=== PATIENT | female | born 1990 | race Caucasian/White ===

== ENCOUNTER 2020-09-20 14:03 | Emergency (ER) | payer SELFPAY ==
--- NOTE | 2020-09-20 14:15 | ED.URI ---
HPI - URI/Sore Throat General Chief Complaint: Upper Respiratory Infection Stated Complaint: covid syptoms Time Seen by Provider: 09/20/20 14:15 Source: patient and RN notes reviewed Mode of arrival: ambulatory Limitations: no limitations History of Present Illness HPI Narrative: 30-year-old female presents to [facility] with complaints of runny nose, sinus congestion, productive cough. Patient states that her son had the same symptoms Tuesday and Tuesday, had it Tuesday, her started on , 2 days ago. Denies fevers. Try using Flonase one time and states it did make it a little bit better. States even though she has her tonsils removed she has a very bad sore throat and is concerned about strep throat. Related Data Home Medications Medication Instructions Recorded Confirmed Mucinex 09/20/20 alprazolam 09/20/20 zolpidem 09/20/20 Allergies Allergy/AdvReac Type Severity Reaction Status Date / Time No Known Allergies Allergy Unverified 02/17/18 14:36 Review of Systems Review of Systems: Narrative: CONSTITUTIONAL: Denies fever, chills, or sweats. EYES: Denies visual changes, redness, or discharge. ENT: Reports rhinorrhea, congestion, sore throat, or otalgia. CARDIOVASCULAR: Denies chest pain, palpitations, or edema. RESPIRATORY: Productive cough. Denies dyspnea. GASTROINTESTINAL: Denies abdominal pain, vomiting, or diarrhea. Intermittent nausea GENITOURINARY: Denies dysuria or hematuria. SKIN: Denies rash or itching. MUSCULOSKELETAL: Denies back pain, joint pain, or myalgia. NEUROLOGIC: Denies headache, numbness, or weakness. PSYCHIATRIC: Denies anxiety or depression. All other systems reviewed are negative, except as documented in HPI. PMFSH Comments At the time of my signature, I reviewed and agree with the nursing past medical, surgical, social, and family history. There is no relevant family history pertinent to the patient complaint. Exam Narrative: Exam Narrative: GENERAL: This is a well-nourished, well-developed patient, in no apparent distress. HEAD: normocephalic, atraumatic. EYES: PERRL. Sclera clear/white. Vision is grossly intact. EARS: External ears normal, auditory canals clear and without drainage, TMs normal without perforation. Hearing grossly intact. NOSE: External nose normal withthick clear nasal discharge, nares with redness bilaterally. Positive rhinorrhea and postnasal drip THROAT: Mucous membranes moist, posterior pharynx drainage, postnasal drip NECK: Neck supple, non-tender without lymphadenopathy, masses or thyromegaly. CARDIOVASCULAR: Regular rate and rhythm without murmurs, gallops, or rubs. RESPIRATORY: Clear to auscultation. Breath sounds equal bilaterally. No wheezes, rales, or rhonchi. Strong cough noted every time she sniffles GASTROINTESTINAL: Abdomen soft, non-tender, nondistended. Bowel sounds are active. No hepato-splenomegaly, or palpable masses. No guarding. SKIN: warm, intact with no suspicious lesions or rash, good texture and turgor. NEURO: awake, alert, and oriented to person, place and time. There were no obvious focal neurologic abnormalities. EXTREMITIES: No clubbing, cyanosis, or edema. No joint tenderness, effusion, or edema noted. BACK: Nontender without deformity or crepitance. No flank tenderness. Course Vital Signs Vital signs: Vital Signs Temperature 98.8 F 09/20/20 14:23 Pulse Rate 108 H 09/20/20 14:23 Respiratory Rate 16 09/20/20 14:23 Blood Pressure 124/67 09/20/20 14:23 Pulse Oximetry 98 09/20/20 14:23 Temperature 98.8 F 09/20/20 14:23 Pulse Rate 108 H 09/20/20 14:23 Respiratory Rate 16 09/20/20 14:23 Blood Pressure 124/67 09/20/20 14:23 Pulse Oximetry 98 09/20/20 14:23 Reviewed MDM - URI/Sore Throat Differential Diagnosis Differential diagnosis: Likely upper respiratory infection, otitis media, sinusitis, viral infection, bronchitis, influenza, pharyngitis and other (Covid) Lab Data La
[2020-09-20 14:23] VITALS: BP 124/67; PULSE 108; RESP 16; TEMP 37.1; O2SAT 98
[2020-09-22 23:00] LABS: SARS-CoV-2 RNA PCR Negative
== END 2020-09-20 15:10 | disposition home or self-care (01) ==
PROVIDERS: Emergency Provider Nurse Practitioner
DX: B34.9 Viral infection, unspecified (principal); J01.40 Acute pansinusitis, unspecified; R09.82 Postnasal drip; Z20.822 Contact with and (suspected) exposure to COVID-19
CPT/HCPCS: 87081; 87804; 87880; 99213; C9803; G0463; U0003; U0005

== ENCOUNTER 2021-09-26 12:21 | Outpatient (CLI) | payer OTHER, SELFPAY ==
[2021-09-26 12:45] VITALS: BP 149/83; PULSE 99
[2021-09-26 13:00] VITALS: BP 133/76; PULSE 103
[2021-09-26 13:35] LABS: Hematocrit 33.2 % (37.0-47.0); Hemoglobin 10.9 g/dL (12.0-15.0); Mean Corpuscular HGB Conc 32.8 g/dl (32-36); Mean Corpuscular Hemoglobin 27.9 pg (26-34); Mean Corpuscular Volume 85.1 fl (80-100); Mean Platelet Volume 10.4 fl (7.4-10.4); Platelet Count Result 209 k/mm3 (150-375); Red Cell Distribution Width 13.7 % (11.5-14.5); White Blood Count 14.4 K/mm3 (4.5-10.0)
[2021-09-28 07:14] LABS: Rapid Plasma Reagin Non-Reactive (NonReactive)
== END 2021-09-26 13:20 | disposition home or self-care (01) ==
LOC: ANHOBOP 12:30 → ANHLDR 12:30
PROVIDERS: Visit Provider Obstetrics & Gynecology
DX: O13.9 Gestational [pregnancy-induced] hypertension without significant proteinuria, unspecified trimester (principal); Z3A.00 Weeks of gestation of pregnancy not specified
CPT/HCPCS: 36415; 85027; 86592; 86850; 86900; 86901; 99199

== ENCOUNTER 2021-09-26 12:21 | Outpatient (RCR) | payer OTHER, SELFPAY ==
[2021-09-26 13:08] VITALS: BP 133/76; PULSE 103
== END 2021-10-13 09:35 | disposition home or self-care (01) ==
LOC: ANHOBOP 12:21
PROVIDERS: Visit Provider Obstetrics & Gynecology
DX: O26.619 Liver and biliary tract disorders in pregnancy, unspecified trimester (principal); K83.1 Obstruction of bile duct; Z3A.00 Weeks of gestation of pregnancy not specified
CPT/HCPCS: 59025

== ENCOUNTER 2021-09-28 04:57 | Inpatient (IN) | payer OTHER, SELFPAY ==
--- NOTE | 2021-09-26 13:13 | PC.NURSE ---
Verified with or schedule and patient--c/s with tubal ligation on 09/28/21 at 0730
[2021-09-28] VITALS (60 sets, daily range): BP systolic 90–135; BP diastolic 35–86; PULSE 55–130; RESP 12–18; TEMP 36.1–36.8; O2SAT 98–100; BMI 46.9
--- OUTSIDE RECORDS SUMMARY | 2021-09-28 05:01 | XMS_ITS | Encounter Summary ---
:1990 Author Reason for Visit None recorded. Assessment and Plan 1. Maternal obesity complicating , childbirth and the puerperium, antepartum ? US, obstetric, biophysical profile + non-stress test Discussion Note: None recorded.Patient educational handouts: No information available. Plan of Care Reminders Provider Appointments Ob Routine Ventura Melendez 10/06/2021 MD Clarence 11:45AM Lab None recorded. ? ? Referral None recorded. ? ? Procedures None recorded. ? ? Surgeries None recorded. ? ? Imaging US, Obstetric, [facility] Biophysical Profile + 09/22/2021 Non-stress Test Medications Name Start Date ? ? albuterol sulfate HFA 90 mcg/actuation aerosol inhaler ? INHALE 2 PUFFS BY MOUTH EVERY 4 HOURS Aspirin Low Dose 81 mg tablet,delayed release ? TAKE 1 TABLET BY MOUTH TWICE DAILY benzonatate 100 mg capsule ? calcium carbonate 600 mg-vitamin D3 10 mcg (400 unit) tablet ? TAKE 1 TABLET BY MOUTH TWICE DAILY COVID-19 test specimen collection ? folic acid 1 mg tablet ? TAKE 2 TABLETS BY MOUTH TWICE DAILY DIRECTED potassium chloride ER 20 mEq tablet,extended release ? Take 1 tablet every day by oral route for 3 days. ?
--- OUTSIDE RECORDS SUMMARY | 2021-09-28 05:01 | XMS_ITS | Encounter Summary ---
[...] None recorded. ? ? Imaging US, Obstetric, [facility] Biophysical Profile + 09/08/2021 Non-stress Test Medications Name Start Date ? [...]
--- OUTSIDE RECORDS SUMMARY | 2021-09-28 05:01 | XMS_ITS ---
:1990 Author Care Team Providers Name Role Phone CLEVE MAC MD Screen Operator [phone] Allergies Code Code System Name Reaction Severity Status Onset NKDA ? Notes: Some allergies listed in Documents: #[id number], #[id number], #[id number], #[id number], #[id number], #[id number], #[id number], #[id number], #[id number] could not be added to this patient's chart. Please review t hese documents and add these allergies to the patient's chart manually as needed. Medications Name Status Start Date Stop Date ? ? acyclovir 800 mg tablet Active ? Not avai lable Take 1 tablet every day by oral route. albuterol sulfate HFA 90 mcg/actuation aerosol inhaler Active ? Not available INHALE 2 PUFFS BY MOUTH EVERY 4 HOURS alprazolam 0.5 mg tablet Active ? Not dong ilable TK 1 T PO TID PRN Aspirin Low Dose 81 mg tablet,delayed release Active ? Not available Take 1 tablet twice a day by oral route. benzonatate 100 mg capsule Active ? Not a vailable TAKE ONE CAPSULE BY MOUTH EVERY 8 HOURS NEEDED FOR COUGH AND CONGESTION bupropion HCl SR 150 mg tablet,12 hr Completed ? 06/11/2020 sustained-release Calcium 600 with Vitamin D3 600 mg-10 mcg (400 unit) capsule Act dwain ? Not available Take 1 capsule twice a day by oral route. calcium carbonate 600 mg-vitamin D3 10 mcg (400 unit) tablet Act dwain ? Not available TAKE 1 TABLET BY MOUTH TWICE DAILY calcium carbonate 600 mg-vitamin D3 20 mcg (800 unit) tablet Com pleted ? 06/30/2018 Take 1 tablet twice a day by oral route for 30 days. Condoms-Humza Lubricated Completed
--- OUTSIDE RECORDS SUMMARY | 2021-09-28 05:01 | XMS_ITS | Encounter Summary ---
:1990 Author Reason for Visit NST [id number] EDC 10/17/2021 Assessment and Plan 1. Maternal obesity complicating , childbirth and the puerperium, antepartum ? non-stress test Discussion Note: None recorded.Patient educational handouts: No information available. Plan of Care Reminders Provider Appointments Ob Routine Ventura Melendez 10/06/2021 MD [place]rence 11:45AM Lab None ? ? recorded. Referral None ? ? recorded. Procedures None ? ? recorded. Surgeries None ? ? recorded. Imaging Non-stress [place] Test 09/15/2021 Medications Name Start Date ? ? albuterol [...] by oral route for 3 days. ? progesterone micronized 200 mg capsule ? sumatriptan 100 mg tablet ?
--- OUTSIDE RECORDS SUMMARY | 2021-09-28 05:01 | XMS_ITS | Encounter Summary ---
:1990 Author Reason for Visit OB visit Assessment and Plan 1. Pruritus of skin ? bile acids, total, serum ? CMP, serum or plasma 2. Routine care Discussion Note: None recorded.Patient educational handouts: No information available. Plan of Care Reminders Provider Appointments Ob Routine Ventura Melendez 10/06/2021 MD Clarence 11:45AM Lab Bile Acids, [facility] Total, Serum 09/08/2021 Hospital (Lab) ? CMP, Serum [facility] or Plasma 09/08/2021 [facility] (Lab) Referral None ? ? recorded. Procedures None ? ? recorded. Surgeries None ? ? recorded. Imaging None ? ? recorded. Medications Name Start Date ? ? albuterol [...] DIRECTED potassium chloride ER 20 mEq tablet,extended r
--- OUTSIDE RECORDS SUMMARY | 2021-09-28 05:01 | XMS_ITS | Encounter Summary ---
[...] Surgeries None ? ? recorded. Imaging Non-stress [place] Test 09/08/2021 Medications Name Start Date ? ? albuterol [...]
--- OUTSIDE RECORDS SUMMARY | 2021-09-28 05:01 | XMS_ITS ---
:1990 Author Care Team Providers Name Role Phone Henry Lima Primary Care Provider Unavailable Allergies None recorded. Medications Name Status Start Date Stop Date ? ? albuterol sulfate HFA 90 mcg/actuation aerosol inhaler Active ? Not available INHALE 2 PUFFS BY MOUTH EVERY 4 HOURS Aspirin Low Dose 81 mg tablet,delayed release Active ? Not available TAKE 1 TABLET BY MOUTH TWICE DAILY benzonatate 100 mg capsule Active ? Not a vailable calcium carbonate 600 mg-vitamin D3 10 mcg (400 unit) tablet Act dwain ? Not available TAKE 1 TABLET BY MOUTH TWICE DAILY COVID-19 test specimen collection Active ? Not available folic acid 1 mg tablet Active ? Not avail able TAKE 2 TABLETS BY MOUTH TWICE DAILY DIRECTED potassium chloride ER 20 mEq tablet,extended release Active ? Not available Take 1 tablet every day by oral route for 3 days. Active ? Not available progesterone micronized 200 mg capsule Active ? Not available sumatriptan 100 mg tablet Active ? Not av ailable ursodiol 300 mg capsule Active ? Not avai lable Take 1 capsule twice a day by oral route. Valtrex 1 gram tablet Active ? Not availa ble Take 1 tablet every day by oral route. Problems Name Status Onset Date Source ? Active 08/24/2021 ? Procedures Date Name Performed by ? 09/03/2021 US, Obstetric, Follow-up [place] [id number] [address]
--- OUTSIDE RECORDS SUMMARY | 2021-09-28 05:01 | XMS_ITS | Encounter Summary ---
:1990 Author Reason for Visit new OB Assessment and Plan 1. Routine care Discussion Note: None recorded.Patient educational [...] capsule ? sumatriptan 100 mg tablet ? ursodiol 300 mg capsule ? Take 1 capsule twice a day by oral route. Valtrex 1 gram tablet ? Take 1 tablet every day by oral route. Medications Administered None
--- OUTSIDE RECORDS SUMMARY | 2021-09-28 05:01 | XMS_ITS | Encounter Summary ---
:1990 Author Reason for Visit OB visit Assessment and Plan Assessment Note Patient is ___weeks . Discu ssed plan. 1. Routine care Discussion Note: None recorded.Patient [...]
--- OUTSIDE RECORDS SUMMARY | 2021-09-28 05:01 | XMS_ITS | Encounter Summary ---
:1990 Author Reason for Visit OB visit Assessment and Plan 1. Herpes simplex ? Valtrex 1 gram tablet 2. Hypokalemia 3. Routine care Discussion Note: None recorded.Patient educational [...]
--- OUTSIDE RECORDS SUMMARY | 2021-09-28 05:01 | XMS_ITS ---
:1990 Author Care Team Providers Name Role Phone WorkLesly pierreCas Primary Care Provider Unavailable Allergies Code Code System Name Reaction Severity Status Onset NKDA ? Medications Name Status Start Date Stop Date ? ? alprazolam 0.5 mg tablet Active ? Not dong ilable TK 1 T PO TID PRN cyclobenzaprine 10 mg tablet Completed ? TK 1 T PO TID PRF MSP Effexor XR Completed ? 07/11/2019 ibuprofen 800 mg tablet Completed ? 05/17/20 18 TK 1 T PO Q 8 H Medrol (Nestor) 4 mg tablets in a dose pack Active ? Not available Take 1 dose pk by oral route as directed. meloxicam 7.5 mg tablet Active ? Not avai lable methocarbamol 500 mg tablet Active ? Not available oxycodone-acetaminophen 5 mg-325 mg Completed ? 05/17/2018 tablet tramadol 50 mg tablet Active ? Not availa ble venlafaxine ER 150 mg capsule,extended Active ? Not available release 24 hr venlafaxine ER 75 mg capsule,extended Active ? Not available release 24 hr Xanax Completed ? 07/11/2019 zolpidem 10 mg tablet Active ? Not availa ble TK 1 T PO QD HS Problems None recorded. Procedures Date Name Performed by ? 05/03/2018 Laparoscopic Cholecystectomy Information not available 08/22/2007 Tonsillectomy Information not avai lable ? Cholecystectomy Information not avai labharis
--- OUTSIDE RECORDS SUMMARY | 2021-09-28 05:01 | XMS_ITS | Encounter Summary ---
:1990 Author Reason for Visit OB visit Assessment and Plan Assessment Note Patient is ___weeks . Discu ssed plan. 1. Cholestasis of ? ursodiol 300 mg capsule ? bile acids, total, serum Discussion Note: None recorded.Patient educational handouts: No information available. Plan of Care Reminders Provider Appointments Ob Routine Ventura Melendez 10/06/2021 MD Clarence 11:45AM Lab Bile Acids, [facility] Total, Serum 09/03/2021 Hospital (Lab) Referral None ? ? recorded. Procedures [...]
--- OUTSIDE RECORDS SUMMARY | 2021-09-28 05:01 | XMS_ITS | Encounter Summary ---
[...] ? recorded. Imaging Non-stress [facility] [facility] Test 09/22/2021 Medications Name Start Date ? ? albuterol [...]
--- OUTSIDE RECORDS SUMMARY | 2021-09-28 05:01 | XMS_ITS | Encounter Summary ---
:1990 Author Reason for Visit None recorded. Assessment and Plan 1. Maternal obesity complicating , childbirth and the puerperium, antepartum ? US, obstetric, follow-up Discussion Note: None recorded.Patient educational handouts: No information available. Plan of Care Reminders Provider Appointments Ob Routine Ventura Melendez 10/06/2021 MD Clarence 11:45AM Lab None ? ? recorded. Referral None ? ? recorded. Procedures None ? ? recorded. Surgeries None ? ? recorded. Imaging , [place] Obstetric, Follow-up 09/03/2021 Medications Name Start Date ? ? albuterol [...]
--- OUTSIDE RECORDS SUMMARY | 2021-09-28 05:01 | XMS_ITS | Encounter Summary ---
[...] None recorded. ? ? Imaging US, Obstetric, [facility] Biophysical Profile + 09/15/2021 Non-stress Test Medications Name Start Date ? [...]
--- OUTSIDE RECORDS SUMMARY | 2021-09-28 05:01 | XMS_ITS | Encounter Summary ---
:1990 Author Reason for Visit None recorded. Assessment and Plan 1. Cholestasis of ? non-stress test Discussion Note: None recorded.Patient educational handouts: No information available. Plan of Care Reminders Provider Appointments Ob Routine Ventura Melendez 10/06/2021 MD [place] 11:45AM Lab None ? ? recorded. Referral None ? ? recorded. Procedures None ? ? recorded. Surgeries None ? ? recorded. Imaging Non-stress [place] Test 09/18/2021 Medications Name Start Date ? ? albuterol [...]
--- OUTSIDE RECORDS SUMMARY | 2021-09-28 05:02 | XMS_ITS | Encounter Summary ---
:1990 Author Care Team Providers Name Role Phone Chuy Nevarez MD [employer] Operator [phone] Reason for Visit ob routine visit Assessment and Plan Assessment Note GO Last 1. Routine care OB/FU packet today. GTT and Td ap at next visit. ? urinalysis, dipstick 2. Deliveries by Primary C/S on 08/2015. Desire s repeat c/s with tubal sterilization (papers signed 06/29/2021) 3. Sterilization requested Desires repeat with tubal (papers signed 06/29/2021). Give a copy at next visit. 4. 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 Continue folic acid, ASA, progesterone. B12 given today. ? cyanocobalamin (vit B-12) 1,000 mcg/mL injection solution 5. Abnormal progesterone Continue supplementation. 6. Genital herpes simplex Continue acyclovir. ? genital herpes: care instr uctions 7. Group B Streptococcus carrier 8. History of miscarriage 9. Morbid obesity ? when you are overweight: c are instructions 10. Migraine without aura 11. COVID-19 Discussion Note: None recorded. Plan of Care Reminders Provider Appointments None ? ? recorded. Lab
--- OUTSIDE RECORDS SUMMARY | 2021-09-28 05:02 | XMS_ITS | Encounter Summary ---
:1990 Author Care Team Providers Name Role Phone Chuy Nevarez MD Founder / Ceo [phone] Reason for Visit ob routine visit Assessment and Plan 1. Routine care 31yo @ 28+2w EGA here for TREY visit. - GTT and Tdap today - 28 week labs due, not increased risk f or STD, so will defer to 3TM - vaccines: flu, covid declined Recommended total weight gain during pre gnancy - BMI >/= 30--> 11-20lbs; #258 prepregna ncy with goal 269-279lbs ? urinalysis, dipstick ? glucose tolerance test, ge stational, 1-hour ? CBC ? Boostrix Tdap 2.5 Lf unit- 8 mcg-5 Lf/0.5 mL intramuscular syringe 2. Maternal obesity complicating , childbirth and the puerperium, antepartum BMI 46 - excessive weight gain, is already over her goal weight of 279 - reviewed risks of complications of obe sity including - will need MFM referral - Growth scans at 32 and 36 weeks as wel l as BPPS starting at 36weeks ? US, obstetric, follow-up - BMI 46 ? maternal & medicine referral 3. Deliveries by Primary C/S on 08/2015. Desire s repeat c/s with tubal sterilization (papers signed 06/29/2021) - pt knows to report to [facility] in [place] for her delivery 4. Sterilization requested Desires repeat with tubal (papers signed 06/29/2021). Give a copy at next visit. 5.
[2021-09-28] MEDS: LACTATED RINGERS 1,000 ML 125 ML IV CONT ×2 (05:24→06:33)
--- NOTE | 2021-09-28 05:34 | LDADM ---
This patient, Ngozi Cummings, was admitted to Labor/Delivery/Recovery 120 on 09/28/21 at 04:57. Plans for labor, pain management and were discussed with patient. Patient/family oriented to hospital policies and general routines including ID bracelet, bed and alarms, visiting hours, pain management, procedures, bathroom and other care routines, personal items, smoking policy, room service/diet and guest tray routines, infant security routines, and visiting hours. Patient/Family are encouraged to report perceived risks to care and to ask questions if they do not understand what they are told or what they should do. See OBIX for further documentation.
--- NOTE | 2021-09-28 06:33 | P.PNAN_ITS ---
Anes - Eval Pre Procedure Procedure: Operation Date: 09/28/21 07:30 Proposed Procedures p Section with Tuba lLjluis - Maddi Lima MD Date/Time: 09/28/21 06:33 Pre Op Diagnosis: section Patient Data Age: 31 Gender: F Height: 1.68 m Weight: 131.81 kg Last Vital Signs Temp 36.8 C 09/28/21 05:37 Pulse 108 H 09/28/21 05:18 BP 112/35 L 09/28/21 05:18 Allergies Allergy/AdvReac Type Severity Reaction Status Date / Time No Known Allergies Allergy Unverified 02/17/18 14:36 Home Medications Medication Instructions Recorded Confirmed Type Valtrex See Rx Instructions .ROUTE .COMPLEX 09/26/21 09/28/21 History aspirin [Aspirin Low Dose] 81 mg PO DAILY 09/28/21 09/28/21 History ursodiol 300 mg PO BID 09/28/21 09/28/21 History Patient hx anesthesia problems: none Family hx anesthesia problems: none Results Review: All pre-operative results and documents have been reviewed as part of the pre-operative evaluation. COUNTS INCLUDE 234 BEDS AT THE [facility] Past Medical History Medical History (Updated 09/28/21 @ 06:34 by Maisha Luna CRNA) PIH ( induced hypertension) Family History Family History (Updated 09/26/21 @ 13:04 by Abdoulaye Mak RN) Other No pertinent family history Social History Social History Smoking status: Never smoker Substance use: never Spiritual care concerns: No Exam Day of Procedure 09/28/21 06:33
--- NOTE | 2021-09-28 06:45 | PM.IMHP ---
H&P: HPI History of Present Illness Date/Time: 09/28/21 06:45This patient is a 31-year-old multiparous female with a previous delivery and cholestasis of . She presents for delivery at 37 weeks gestation. She has no complaints. She denies any loss of fluid, vaginal bleeding, contractions. She denies any nausea, vomiting, fever, chills. She denies any chest pain or shortness of breath. Chief Complaint: term Review of Systems Review of Systems: All systems reviewed & are unremarkable except as noted in HPI and below Constitutional: Constitutional: Denies chills, Denies fatigue, Denies fever(s) and Denies weakness Eyes: Eyes: Denies blurry vision, Denies change in vision, Denies loss of peripheral vision, Denies loss of vision, Denies other visual disturbances and Denies eye pain ENT: Denies vertigo, Denies dizziness, Denies hearing loss, Denies mouth pain, Denies nasal obstruction, Denies neck mass and Denies neck pain Cardiovascular: Cardiovascular: Denies chest pain, Denies diaphoresis, Denies syncope, Denies leg edema and Denies dyspnea Respiratory: Respiratory: Denies chest congestion, Denies cough, Denies hemoptysis, Denies dyspnea and Denies wheezing Gastrointestinal: Gastrointestinal: Denies abdominal pain, Denies constipation, Denies diarrhea, Denies nausea and Denies vomiting Genitourinary: Genitourinary: Denies hematuria, Denies change in libido, Denies nocturia, Denies genital lesions, Denies flank pain and Denies urinary urgency Musculoskeletal: Musculoskeletal: Denies abnormal gait, Denies back pain, Denies myalgias, Denies arthralgias, Denies joint swelling, Denies muscle weakness and Denies neck pain Integumentary/Breasts: Skin/Breast: Denies swelling, Denies breast pain, Denies breast mass, Denies dry skin, Denies nipple discharge, Denies unusual bruising and Denies jaundice Neurologic: Denies Neuro-related abnormal movements, Denies Abnormal speech present, Denies abnormal gait, Denies behavioral changes, Denies confusion, Denies vertigo, Denies dizziness, Denies syncope, Denies loss of vision, Denies memory loss, Denies convulsions and Denies weakness Psychiatric: Psychiatric: Denies abnormal sleep pattern, Denies behavioral changes, Denies change in libido, Denies confusion, Denies depression, Denies anhedonia and Denies memory loss Endocrine: Endocrine: Reports no additional endocrine complaints, Denies change in libido and Denies fatigue Hematologic/Lymphatic: Hematologic/Lymphatic: Reports no additional hematologic/lymphatic complaints Allergic/Immunologic: Allergic/Immunologic: Reports no additional allergic/immunologic complaints and Denies wheezing [facility] Past Medical History Medical History (Updated 09/28/21 @ 06:48 by Maddi Lima MD) PIH ( induced hypertension) Family History Family History (Updated 09/26/21 @ 13:04 by Abdoulaye Mak RN) Other No pertinent family history Social History Social History Smoking status: Never smoker Substance use: never Spiritual care concerns: No Meds Home Medications and Allergies Home Medications Medication Instructions Recorded Confirmed Type Valtrex See Rx Instructions .ROUTE .COMPLEX 09/26/21 09/28/21 History aspirin [Aspirin Low Dose] 81 mg PO DAILY 09/28/21 09/28/21 History ursodiol 300 mg PO BID 09/28/21 09/28/21 History Allergies Allergy/AdvReac Type Severity Reaction Status Date / Time No Known Allergies Allergy Unverified 02/17/18 14:36 Vital Signs Vital Signs - 24 hr 09/28/21 05:18 09/28/21 05:37 Temperature 98.3 F Pulse Rate 108 H Blood Pressure 112/35 L Exam Const: General: cooperative, healthy appearing, comfortable and no acute distress; No confusion Orientation/consciousness: oriented to person, oriented to place, oriented to time and No confusion HENMT: Head: normal to inspection Ears: external ears normal General nose exam: Normal external nose
--- NOTE | 2021-09-28 06:49 | WPDHPUPDATE1 ---
History and Physical Update Update Date/Time: 09/28/21 06:49 History and Physical has been reviewed, including an updated exam of the patient. There are NO changes in the patient's condition. Risks, benefits, and alternatives have been discussed and questions answered. Patient agrees to proceed with procedure.
--- NOTE | 2021-09-28 07:52 | W.PM.PROC2 ---
Procedure Note - Detailed Date of Procedure 09/28/21 Pre-op Diagnosis section, cholestasis of Post-op Diagnosis same Procedure Performed Low-transverse section Surgeon Maddi Lima MD Anesthesia spinal Findings Normal gestational maternal anatomy, average size , normal Apgars. Description of Procedure The patient was taken the operating room. She was prepped and draped in dorsal supine position with a leftward tilt. This was done after spinal anesthetic was applied. A low-transverse skin incision was made and carried down till of the fascia with the knife. The fascial incision was made with the knife. The fascial incision was extended laterally with Andrews scissors. The fascia was tented upward superiorly and inferiorly the rectus muscles were dissected off bluntly. The rectus muscles were the midline. The preperitoneal fat and peritoneum were dissected open bluntly at the superior aspect of the rectus muscles. The peritoneal incision was extended superior and inferior with good position of bladder. The uterine incision was made with a scalpel down to the level of the amniotic cavity. The amniotic cavity was entered bluntly. The was delivered. The cord was clamped and cut and the was handed off to waiting pediatric staff. Cord bloods were obtained. The placenta was removed manually. The uterus was exteriorized. The uterus was cleared of all clots, debris and membranes. The uterus was closed in 0 Vicryl running lock fashion. An imbricating over a was placed along the incision line as well. Each fallopian tube was grasped and raised with a Joe. With from the underlying venous structures. The mesosalpinx between the tube and the rest the adnexa was cauterized and transected with LigaSure cautery. It was performed from the distal tube near the ovary in a stepwise fashion towards the cornua. The tube at the cornua was cauterized transected with LigaSure cautery. This was performed in a bilateral fashion. The uterus was returned to the abdomen. The gutters were cleared of all clots and debris. The fascia was closed with 0 Vicryl running fashion. The subcutaneous tissue was irrigated pinpoint bleeders were cauterized. The skin was closed with subcuticular absorbable isabel. The skin incision line was covered with glue. The patient tolerated the procedure well. She has taken recovery room in stable condition. Sponge lap and needle counts were correct x2. Estimated Blood Loss 250 Complications No immediate complications Condition stable Disposition PACU
[2021-09-28] MEDS: OXYTOCIN 30 UNITS/NS 500 ML 30 UNITS/500 ML BAG 125 UNITS IV CONT (08:33)
--- NOTE | 2021-09-28 10:42 | PC.NURSE ---
Patient transferred to post room #282 per stretcher from labor and delivery. Support person present. Oriented to unit, room, information board, rooming in, admission packet and security measures. Patient verbalizes understanding.
[2021-09-28] MEDS: KETOROLAC 30 MG/ML VIAL (*BKC) IV PUSH (10:58)
[2021-09-28] MEDS: diphenhydrAMINE HCl INJ 50 MG/ML VIAL (11:01)
[2021-09-28] MEDS: DEXTROSE 5%/0.45% SOD CHL 1,000 ML 125 ML IV CONT (13:13)
[2021-09-28] MEDS: HYDROcodone/acetaminophen (*CRX) 5-325 MG TABLET 1 TAB PO ×2 (16:06→19:03)
[2021-09-28] MEDS: ENOXAPARIN 40 MG/0.4 ML SYRINGE SUB-Q (19:02)
[2021-09-28] MEDS: IBUPROFEN 600 MG TABLET PO (19:03)
[2021-09-29] MEDS: IBUPROFEN 600 MG TABLET PO ×4 (00:48→22:28)
[2021-09-29] MEDS: HYDROcodone/acetaminophen (*CRX) 5-325 MG TABLET 1 TAB PO ×2 (00:49→04:33)
[2021-09-29 01:00] VITALS: BP 129/74; PULSE 80; RESP 18; TEMP 36.2; O2SAT 100
[2021-09-29 04:30] VITALS: BP 117/72; PULSE 78; RESP 18; TEMP 36.4; O2SAT 98
[2021-09-29 05:44] LABS: Basophils Absolute Auto 0.1 K/mm3 (0.0-0.1); Basophils Percent Auto 0.5 % (0.2-1.2); Eosinophils Absolute Auto 0.2 K/mm3 (0-0.3); Eosinophils Percent Auto 1.5 % (0-4.4); Hematocrit 31.1 % (37.0-47.0); Hemoglobin 9.8 g/dL (12.0-15.0); Immature Granulocyte Absolute 0.12 K/mm3 (0.00-0.031); Lymphocytes Percent Auto 18.1 % (18.3-44.2); Mean Corpuscular HGB Conc 31.5 g/dl (32-36); Mean Corpuscular Hemoglobin 26.8 pg (26-34); Mean Corpuscular Volume 85.2 fl (80-100); Mean Platelet Volume 10.8 fl (7.4-10.4); Monocytes Percent Auto 8.2 % (2.6-8.5); Neutrophils Absolute Auto 8.2 K/mm3 (1.3-6.7); Neutrophils Percent Auto 70.7 % (45.5-73.1); Platelet Count Result 196 k/mm3 (150-375); Red Blood Count 3.65 M/mm3 (4.2-5.4); White Blood Count 11.6 K/mm3 (4.5-10.0)
[2021-09-29 05:54] LABS: Estimated CRCL calculation 161 ml/min; Estimated Glomerular Filt Rate > 60
[2021-09-29] MEDS: POLYSACCHARIDE IRON COMPLEX 150 MG CAPSULE PO ×2 (07:31→16:14)
[2021-09-29] MEDS: MULTIVIT/MIN/PREN/FOL AC/IRON TABLET 1 TAB PO (07:32)
[2021-09-29] MEDS: HYDROcodone/acetaminophen (*CRX) 10-325 MG TABLET 1 TAB PO ×5 (07:33→22:28)
[2021-09-29] MEDS: DOCUSATE SODIUM 100 MG CAPSULE PO ×2 (07:33→16:14)
[2021-09-29 07:40] VITALS: BP 122/76; PULSE 78; RESP 16; TEMP 36.5; O2SAT 99
--- NOTE | 2021-09-29 09:06 | WPDANLDPN2 ---
Anes-Prog Note L&D Date/Time: 09/29/21 09:06 Comfortable throughout: labor and delivery Neuraxial method: epidural Epidural/Spinal procedure site: clean & non-tender Neuro status: Neuro function grossly intact. Cardiovascular status: normal Respiratory status: normal Airway patency: baseline Mental status: baseline Post-Op hydration status: normal Vital Signs: Last Vital Signs Temp 97.7 F 09/29/21 07:40 Pulse 78 09/29/21 07:40 Resp 16 09/29/21 07:40 BP 122/76 09/29/21 07:40 Pulse Ox 99 09/29/21 07:40 Pain score (VAS): 08/31 I/O: Intake & Output 09/28/21 09/29/21 09/29/21 23:59 07:59 15:59 Intake Total 1080 1900 Output Total 425 2250 Balance 655 -350 Patient feedback: Patient satisfied with anesthetic care.
--- NOTE | 2021-09-29 09:06 | WPDANLDNPN2 ---
Anes-Prog Note L&D-Neuraxial Date/Time: 09/29/21 09:06 Neuraxial medications: intrathecal PF morphine Opiod-related complaints: none Patient feedback: Patient satisfied with post-operative pain management.
[2021-09-29 16:00] VITALS: BP 135/85; PULSE 90; RESP 16; TEMP 36.6; O2SAT 98
[2021-09-29] MEDS: SIMETHICONE 80 MG TAB.CHEW PO ×3 (16:14→22:28)
[2021-09-29 19:15] VITALS: BP 125/71; PULSE 89; RESP 16; TEMP 37.1; O2SAT 99
[2021-09-29] MEDS: ENOXAPARIN 40 MG/0.4 ML SYRINGE SUB-Q (19:18)
[2021-09-29 23:00] VITALS: BP 131/74; PULSE 77
[2021-09-30] MEDS: HYDROcodone/acetaminophen (*CRX) 10-325 MG TABLET 1 TAB PO ×3 (01:31→11:12)
[2021-09-30] MEDS: SIMETHICONE 80 MG TAB.CHEW PO ×3 (01:31→08:01)
[2021-09-30 04:30] VITALS: BP 124/89; PULSE 74
[2021-09-30] MEDS: IBUPROFEN 600 MG TABLET PO ×2 (04:36→11:11)
[2021-09-30] MEDS: HYDROcodone/acetaminophen (*CRX) 5-325 MG TABLET 1 TAB PO (04:36)
[2021-09-30 07:45] VITALS: BP 148/88; PULSE 77; RESP 18; TEMP 37.1; O2SAT 100
[2021-09-30] MEDS: POLYSACCHARIDE IRON COMPLEX 150 MG CAPSULE PO (08:02)
[2021-09-30] MEDS: DOCUSATE SODIUM 100 MG CAPSULE PO (08:02)
[2021-09-30] MEDS: MULTIVIT/MIN/PREN/FOL AC/IRON TABLET 1 TAB PO (08:02)
[2021-09-30 09:45] VITALS: BP 137/72
[2021-09-30] MEDS: MEASLES,MUMPS,RUBELLA VACCINE 0.5 ML VIAL SUB-Q (11:05)
--- NOTE | 2021-09-30 11:16 | PC.NURSE ---
1031 1055 Introductions were made and mother led the conversation with regards to her pumping/collecting and storing human milk to feed her baby. Reminded parents to use good handwashing to prevent infection. Reviewed hand expression, production of human milk, transition of milk, signs of adequate intake and engorgement prevention/relief and when to call the infant care provider using the mom and baby guide. Mother demonstrates understanding of hand expressing and has been collecting human milk. Reviewed community resources and outpatient services as listed in the mom and baby guide/[facility] website. Mother voiced understanding of information shared. Reported to primary RN.
--- NOTE | 2021-09-30 13:18 | PC.NURSE ---
1305-Pt discharge prescriptions sent to pharmacy by Dr. Lima. Pt educated to continue vitamins while and stool softeners while taking narcotic pain medications. Pts spouse has already picked up prescriptions. Pt has follow up appt already scheduled with Dr. Lima for .
--- NOTE | 2021-10-21 21:23 | PM.OBDSVD ---
DS: Admitting Diagnosis Discharge Date 09/30/21 Admitting Diagnosis cholestasis of DS: Discharge Diagnosis Discharge Diagnosis (1) Previous delivery, delivered: Code(s): O34.219 - Maternal care for unspecified type scar from previous delivery Status: Acute (2) Cholestasis during : Code(s): O26.619 - Liver and biliary tract disorders in , unspecified trimester; K83.1 - Obstruction of bile duct Status: Acute OB - DS: Summary OB Procedures : NST and Ultrasound OB Procedures Intrapartum: OB Procedures: : None Peripartum Data Procedures: Procedures Operation Date: 09/28/21 07:30 Actual Procedure Side Surgeon p Section with Tuba lLigation Not Applicable Maddi Lima MD Time Spent with Patient Time attestation: Total time spent providing and/or coordinating discharge services: DS: Data Data Completed and Pending Completed studies during hospitalization: Pending at discharge 09/28/21 07:28 Surgical [PTH] Routine Surgical [PTH] Routine Discharge Plan Discharge Attending physician on discharge: Maddi Lima Discharging Clinician: Maddi Lima Anticipated Discharge Date/Time: 09/30/21 12:00 Patient Disposition: Home, Self-Care Activity: may shower, no driving, as tolerated, pelvic rest and other - see discharge instructions Diet: as tolerated and regular Wound Care Instructions: incision open to air and other - see discharge instructions Discharge Instructions: Education: Mom and Baby Guide Given to: Mother Follow-Up: Call your delivering provider's office for an appointment to be seen in: [facility] follow[facility]up [facility]. Appointment Date/Time: October 01, 2021 at 9:00 am What to expect at your follow-up visit: Blood Pressure Check Physical Assessment Call [phone] if you are unable to keep your appointment time. BREAST CARE: * Wear a snug supportive bra. * For engorgement discomfort: Breast Feeding: * Apply warm moist washcloths * Express milk as needed to relieve engorgement * Wear loose clothing Bottle Feeding: * May apply ice packs * For sore nipples: * Identify correct latch-on * Apply warm moist washcloths before and after nursing * Air dry nipples after nursing * May apply Lansinoh cream to nipples ABDOMINAL INCISION: * Allow incision to air dry * Do NOT use lotions for powders on your incision * When showering, allow soap and water to run over the incision, but do not wash incision PERINEAL CARE: * Until bleeding stops, use your bennett bottle after urinating * Change your pad frequently throughout the day * No tub baths until seen by your physician - You may shower ACTIVITY: * Rest as much as possible. * Do not exercise or lift anything heavier than your baby (such as laundry or other children.) * Avoid stairs or driving as much as possible. * Do not put anything into the vagina. No douching, tampons, or sexual activity until seen by physician. NOTIFY PHYSICIAN IF YOU HAVE ANY QUESTIONS OR IF ANY OF THE FOLLOWING SYMPTOMS OCCUR: * If your incision becomes red, swollen, or more painful than what you have experienced in the hospital. * If your vaginal bleeding becomes foul smelling. * If your vaginal bleeding becomes more heavy than a period or if your bleeding changes from pink to bright red. However, you may pass an occasional walnut-sized clot once or twice for the first week . * If you experience a sharp, shooting pain in you calves. * If you discover a hard, reddened area on your breast or if you experience flu-like symptoms. DIET: * Eat regular, well-balanced meals. * Drink plenty of fluids daily. If , drink to thirst. Patient Instructions: Antibiotic Form, and Breast Engorgeme
== END 2021-09-30 13:05 | disposition home or self-care (01) | DRG 783 ==
LOC: ANHLDR 04:59 → ANHOB2 11:10
PROVIDERS: Admitting Provider Obstetrics & Gynecology; Visit Provider Obstetrics & Gynecology
PROC: 10D00Z1 Extraction of Products of Conception, Low, Open Approach (ICD-10-PCS; CPT 59514; principal; 2021-09-28 07:30)
DX: O34.219 Maternal care for unspecified type scar from previous cesarean delivery (principal); O26.62 Liver and biliary tract disorders in childbirth; K83.1 Obstruction of bile duct; O69.81X0 Labor and delivery complicated by cord around neck, without compression, not applicable or unspecified; Z30.2 Encounter for sterilization; Z3A.37 37 weeks gestation of pregnancy; Z37.0 Single live birth
CPT/HCPCS: 36415; 82565; 85025; 88302; 90710; A9270; J0131; J1200; J1650; J1885; J2274; J2370; J2405; J2590; J7120

== ENCOUNTER 2024-11-13 11:16 | Outpatient (CLI) | payer OTHER, SELFPAY ==
--- NOTE | ~2024-11-13 | US_ITS ---
US right upper quadrant INDICATION: Elevated liver function tests PROCEDURE: Realtime right upper abdominal ultrasound. COMPARISON: No prior studies for comparison. FINDINGS: The pancreas is normal without focal mass or pancreatic ductal dilation. Liver echotexture is somewhat heterogeneous, although no discrete mass identified. There is normal directional flow i n the portal vein. Gallbladder is surgically absent. Common bile duct measures 4 mm. No sonographic Bentley's sign. IMPRESSION: 1: Unremarkable limited abdominal ultrasound. Reviewed, dictated and finalized at location A.
--- NOTE | ~2024-11-13 | US_ITS ---
US thyroid INDICATION: Hypothyroidism TECHNIQUE: Real-time sonographic images of the thyroid gland were obtained. COMPARISON: No prior studies for comparison. FINDINGS: The right thyroid lobe measures 4.6 x 1.8 x 1.4 cm. The left thyroid lobe measures 4.3 x 1 .7 x 1.4 cm. There is normal echotexture and echogenicity throughout the thyroid gland. No discrete n odules identified. Normal vascular flow is present. IMPRESSION: 1. Normal thyroid without discrete nodule or abnormal vascularity. Reviewed, dictated and finalized at location A.
== END 2024-11-13 11:17 | disposition home or self-care (01) ==
LOC: GOSHIMG 11:17
PROVIDERS: PCP Internal Medicine; Visit Provider Internal Medicine
DX: E03.9 Hypothyroidism, unspecified (principal); R74.01 Elevation of levels of liver transaminase levels
CPT/HCPCS: 76536; 76705

== ENCOUNTER 2024-11-16 12:32 | Outpatient (CLI) | payer OTHER, SELFPAY ==
--- NOTE | ~2024-11-16 | MR_ITS ---
EXAMINATION: MR hip RT w con DATE: 11/16/2024 14:09 INDICATION: Right hip pain TECHNIQUE: Magnetic resonance (MR) arthrogram of the right hip was performed following intra-articula r gadolinium contrast injection and without intravenous contrast. Details of the hip joint injection have been dictated separately. Sequences included small field of view of the affected hip with axial and sagittal T1-weighted FS SE and T2-weighted FS FSE and coronal T1-weighted SE and T2-weighted FS FSE. COMPARISON: None. FINDINGS: Bones/labrum/cartilage: Alignment is normal. No fracture, avascular necrosis or pathologic marrow replacing process. Mild adebayo mbar spondylosis. Labrum is normal. Articular cartilage is normal. Fluid: Physiologic amount fluid in the left hip joint space. No bursitis or other abnormal fluid collections . No free fluid in the pelvis. Soft tissues: Normal and symmetric muscle bulk and signal in the pelvis and visualized proximal thighs. The bilater al iliopsoas, gluteal and proximal hamstring tendons are normal. Multiple subcentimeter follicles at the bilateral ovaries. Limited evaluation of visceral organs of the pelvis is otherwise unremarkable. No pathologically enlarged pelvic/inguinal lymphadenopathy. IMPRESSION: 1. Normal right hip. Reviewed, dictated and finalized at location B. IMPRESSION: 1. Normal right hip.
--- NOTE | ~2024-11-16 | XR_ITS ---
EXAMINATION: XR fl inj hip RT for MR/CT DATE: 11/16/2024 13:34 INDICATION: Right hip pain TECHNIQUE: A time-out was performed to verify the patient's name, date of , and procedure to e performed. The procedure including the risks, benefits, and alternatives was discussed with the pat ient. Risks discussed included bleeding and infection. The patient understood the risks and agreed to proceed. The skin overlying the right hip joint was prepped and draped in usual sterile fashion. A nesthetic was administered with 1% lidocaine subcutaneously. A 22 G needle was advanced under fluoro scopic guidance into the joint. Injection of 1 mL of Omnipaque 240 confirmed intra-articular positio n of the needle. Subsequently, injectate consisting of 12 mL of 2:1:1 mixture of sterile saline:Omni paque 240:1% lidocaine mixed 200:1 with 529 mg/mL Multihance gadolinium contrast was instilled with intra-articular administration confirmed with intermittent fluoroscopy. The needle was removed and th e entry site was cleaned and dressed. There were no immediate complications. Fluoroscopy exposure ti me was 0.1 minutes. The total number of images was 7. FINDINGS: Real-time fluoroscopy demonstrates the needle in the right hip joint. IMPRESSION: 1. Successful right hip joint injection of dilute gadolinium contrast mixture for subsequent MRI arth rogram which will be dictated separately. Reviewed, dictated and finalized at location B. IMPRESSION: 1. Successful right hip joint injection of dilute gadolinium contrast mixture f or subsequent MRI arthrogram which will be dictated separately.
== END 2024-11-16 12:33 | disposition home or self-care (01) ==
LOC: MICIMG 12:33
PROVIDERS: PCP Orthopaedic Surgery; Visit Provider Orthopaedic Surgery
DX: M25.551 Pain in right hip (principal); M47.816 Spondylosis without myelopathy or radiculopathy, lumbar region
CPT/HCPCS: 20610; 73722; 77002; A9577

== ENCOUNTER 2024-11-16 12:37 | Outpatient (CLI) | payer OTHER, SELFPAY ==
--- NOTE | ~2024-11-16 | MR_ITS ---
EXAMINATION: MR lumbar spine wo con DATE: 11/16/2024 14:23 INDICATION: Lumbar radiculopathy TECHNIQUE: Magnetic resonance imaging (MRI) of the lumbar spine was performed without intravenous con trast. Sequences included sagittal T2-weighted FSE, sagittal T2-weighted FS FSE, sagittal T1-weighted FSE, and axial T2-weighted FSE. COMPARISON: None FINDINGS: 3 mm retrolisthesis L4 on L5 and 5 mm retrolisthesis L5 on S1. Mild likely physiologic anterior wedgi ng at T12. Lumbar vertebral body heights are normal. Subcentimeter T1 hyperintense hemangioma at L2. Marrow signal is otherwise unremarkable. Mild disc height loss with mild disc desiccation and annular fissures at L4-L5 and L5-S1. The conus medullaris terminates at L1. There is normal signal in the ca udal spinal cord. Paravertebral soft tissues are unremarkable. The following disc levels are specific ally discussed: T12-L1: The disc does not extend beyond the endplate margin. There is mild bilateral facet joint oste oarthritis. There is no neural foraminal stenosis. There is no central canal stenosis. L1-L2: The disc does not extend beyond the endplate margin. There is mild bilateral facet joint osteo arthritis. There is no neural foraminal stenosis. There is no central canal stenosis. L2-L3: Disc is minimally bulging. There is mild bilateral facet joint osteoarthritis. There is mild b ilateral neural foraminal stenosis. There is no central canal stenosis. L3-L4: Disc is minimally bulging. There is mild right facet joint osteoarthritis. There is mild bilat eral neural foraminal stenosis. There is no central canal stenosis. L4-L5: Disc is bulging with annular fissure. There is mild bilateral facet joint osteoarthritis. Ther e is mild bilateral neural foraminal stenosis. There is mild central canal stenosis. L5-S1: Disc is bulging with annular fissure and superimposed right paracentral disc extrusion. There is mild bilateral facet joint osteoarthritis. There is mild to moderate left and moderate right neura l foraminal stenosis. There is mild central canal stenosis. The disc extrusion does narrow the latera l recesses exert mass effect upon the traversing bilateral S1 nerve roots, right greater than left. IMPRESSION: 1. Mild lower lumbar predominant spondylosis mostly peripheral the right paracentral disc extrusion a t L5-S1 which appears to compress the traversing S1 nerve roots, right greater left. Correlate clinic ally for muscle weakness of plantar flexion, sensory change of the lateral foot and small toe, and de pressed ankle reflex. Reviewed, dictated and finalized at location B. IMPRESSION: 1. Mild lower lumbar predominant spondylosis mostly peripheral the right parace ntral disc extrusion at L5-S1 which appears to compress the traversing S1 nerve roots, right greater left. Correlate clinically for muscle weakness of plantar flexion, sensory change of the lateral foot and small toe, and depressed ankle reflex.
== END 2024-11-16 12:38 | disposition home or self-care (01) ==
LOC: MICIMG 12:39
PROVIDERS: PCP Orthopaedic Surgery; Visit Provider Orthopaedic Surgery
DX: M47.26 Other spondylosis with radiculopathy, lumbar region (principal); M51.17 Intervertebral disc disorders with radiculopathy, lumbosacral region
CPT/HCPCS: 72148